=== PATIENT | female | born 1970 | race Caucasian/White ===

== ENCOUNTER 2018-11-30 04:58 | Emergency (ER) | payer BC ==
[2018-11-30 05:07] VITALS: RESP 18
[2018-11-30] MEDS ORDERED: KETOROLAC 30 MG/ML 1 ML VIAL IM STA (05:29)
[2018-11-30 05:34] LABS: Appearance,Urine Clear (Clear); Bacteria,Urine Rare /hpf; Bilirubin,Urine 1+ (Negative); Blood,Urine Moderate (Negative); Color,Urine Dark Brown; Glucose,Urine (UA) Negative (Negative); Ketones,Urine Negative (Negative); Leukocyte Esterase,Urine Negative (Negative); Mucus,Urine Few /hpf; Nitrite,Urine Positive (Negative); Protein,Urine Trace (Negative); RBC,Urine 119 /hpf (0-5); Specific Gravity,Urine 1.025 (1.001-1.035); Squamous Epithelial Cell,Urine 1 /hpf (0-4)
--- NOTE | 2018-11-30 05:36 | ED ---
Abdominal Pain HPI - General Chief Complaint: Abdominal Pain Stated Complaint: LRQ Pain Hx Kidney Stones Time Seen by Provider: 11/30/18 05:16 Source: patient Mode of arrival: ambulatory Limitations: no limitations - History of Present Illness Initial Comments: Analy is a pleasant 48-year-old female presents the emergency department today for evaluation of her pubic abdominal discomfort urinary frequency and concerned that she may have a kidney stone. Patient reports that she was vacationing in [place] and on Thursday she began having discomfort in her bladder however because she was on vacation she didn't seek any medical care. She reports over the weekend she's been taking [id number] Azo standard for treatment of the dysuria. She attempted to see her primary care physician yesterday however office was closed and overnight she began having worsening his comfort in the suprapubic area and radiating to the right flank which prompted her to come the ER for evaluation. Patient reports she has some nausea but no vomiting. No fevers chills chest pain or change in bowel habits. Patient reports that her pain was worse earlier in the morning is improving upon arrival. - Related Data Home Medications Medication Instructions Recorded Confirmed Spironolactone [Aldactone] 25 mg PO DAILY 10/03/15 10/03/15 Previous Rx's Medication Instructions Recorded Hydrocodone/Acetaminophen [Boelus 1 each PO Q6HR PRN #20 tab 10/03/15 5-325] Ibuprofen [Motrin] 600 mg PO Q6HR PRN #40 day 10/03/15 Ondansetron Odt [Zofran ODT] 4 mg PO Q8HR PRN #15 tab 10/03/15 Tamsulosin [Flomax] 0.4 mg PO DAILY #3 cap 10/03/15 Cephalexin [Keflex] 500 mg PO Q6HR 5 Days #20 cap 11/30/18 Tamsulosin [Flomax] 0.4 mg PO DAILY #7 cap 11/30/18 Allergies Allergy/AdvReac Type Severity Reaction Status Date / Time No Known Allergies Allergy Verified 11/30/18 05:06 Review of Systems ROS Statement: Those systems with pertinent positive or pertinent negative responses have been documented in the HPI. ROS Other: All systems not noted in ROS Statement are negative. Past Medical History Additional Past Medical History / Comment(s): kidney stones ovarian cyst, History of Any Multi-Drug Resistant Organisms: None Reported Past Surgical History: No Surgical Hx Reported Past Psychological History: No Psychological Hx Reported Smoking Status: Current every day smoker Past Alcohol Use History: Occasional Past Drug Use History: None Reported General Exam - General Exam Comments Initial Comments: Physical Exam GENERAL: Patient is well-developed and well-nourished. Patient is nontoxic and well- hydrated and is in no distress. HENT: Normocephalic, Atraumatic. EYES: PERRL, EOMI PULMONARY: Unlabored respirations. No audible rales rhonchi or wheezing was noted. CARDIOVASCULAR: There is a regular rate and rhythm without any murmurs gallops or rubs. ABDOMEN: Soft and nontender with normal bowel sounds. Non-peritoneal SKIN: Skin is tanned, clear with no lesions or rashes and otherwise unremarkable. : Deferred NEUROLOGIC: Patient is alert and oriented x3. Moving all extremities spontaneously MUSCULOSKELETAL: Normal extremities with adequate strength and full range of motion. No lower extremity swelling or edema. No calf tenderness. PSYCHIATRIC: Normal psychiatric evaluation. Limitations: no limitations Limitations: no limitations Course Vital Signs 11/30/18 05:04 Temperature 97.5 F L Pulse Rate 69 Respiratory 18 Rate Blood Pressure 152/89 O2 Sat by Pulse 100 Oximetry Medical Decision Making - Medical Decision Making The patient was seen and evaluated history was obtained from the patient and review of medical records This is a pleasant 48-year-old female is presenting to the emergency department today for evaluation of dysuria and suprapubic discomfort radiating to the right flank and side History and physical exam are concerning for urinary tract infection as the patient's urinary discomfort seems to have been worsening since or Thursday of last week she's been treating this symptomatically with Pyridium and drink plenty of fluids. Patient reports this morning the discomfort was unbearable and she didn't want to wait to see if she get a doctor's appointment today so she came to the ER for further evaluation Upon arrival patient is afebrile she is not tachycardic she has no Sirs criteria. Her discomfort is suprapubic and seems to be improving since last taking Pyridium. Urinalysis does have significant red cells as well as white blood cells and bacteria positive for nitrites I will treat for urinary tract infection however considering that there is significantly more reds and whites will also treat empirically as though the patient has a kidney stone. Patient requesting prescription for Flomax that she feels this is helped her in the past. All questions pertaining care were answered return parameters were discussed patient be discharged home with Keflex and Flomax. Patient was given first dose of Keflex here in the emergency department. - Lab Data Lab Results 11/30/18 Range/Units 05:07 Urine Color Dark Brown Urine Appearance Clear (Clear) Urine pH 6.0 (5.0-8.0) Ur Specific [place] 1.025 (1.001-1.035) Urine Protein Trace H (Negative) Urine Glucose (UA) Negative (Negative) Urine Ketones Negative (Negative) Urine Blood Moderate H (Negative) Urine Nitrite Positive H (Negative) Urine Bilirubin 1+ H (Negative) Urine Urobilinogen 4.0 (<2.0) mg/dL Ur Leukocyte Esterase Negative (Negative) Urine RBC 119 H (0-5) /hpf Urine WBC 3 (0-5) /hpf Ur Squamous Epith Cells 1 (0-4) /hpf Urine Bacteria Rare H (None) /hpf Urine Mucus Few H (None) /hpf Disposition Clinical Impression: UTI (urinary tract infection) Disposition: HOME SELF-CARE Condition: Stable Instructions (If sedation given, give patient instructions): Urinary Tract Infection in Women (ED) Prescriptions: Tamsulosin [Flomax] 0.4 mg PO DAILY #7 cap Cephalexin [Keflex] 500 mg PO Q6HR 5 Days #20 cap Is patient prescribed a controlled substance at d/c from ED?: No Referrals: Jorge A Swanson MD [Primary Care Provider] - 1-2 days
[2018-11-30] MEDS ORDERED: CEPHALEXIN 500MG STARTER PACK 4 CAP BTL PO STA (05:47)
[2018-11-30 06:03] VITALS: BP 142/72; PULSE 72; TEMP 97
--- NOTE | 2018-11-30 06:11 | XR ---
EXAM: XR Abdomen, 2 Views CLINICAL HISTORY: possible kidney stone right TECHNIQUE: Frontal upright views of the abdomen/pelvis. COMPARISON: CT of the abdomen/pelvis dated 10/03/2015. FINDINGS: Gastrointestinal tract: Unremarkable. No dilation. Organs: Bilateral nephrolithiasis is again noted. Bones/joints: Unremarkable. IMPRESSION: Bilateral nephrolithiasis is again noted. Renal stone protocol CT is recommended for further evaluation.
== END 2018-11-30 06:13 | disposition home or self-care (01) ==
LOC: EC 04:58
DX: N39.0 Urinary tract infection, site not specified (principal); F17.200 Nicotine dependence, unspecified, uncomplicated; Z87.442 Personal history of urinary calculi; Z87.42 Personal history of other diseases of the female genital tract; Z79.899 Other long term (current) drug therapy
CPT/HCPCS: 81001; 87086; 74018; 99284; 96372; J1885